=== PATIENT | female | born 1950 | race Caucasian/White ===

== ENCOUNTER 2023-02-18 18:28 | Inpatient (IN) | payer MEDICAID ==
[~2023-02-18] VITALS: Ht 152.4 cm; Wt 57.3 kg
[2023-02-18 19:09] LABS: BASOPHILS # (AUTO) 0.1 K/UL (0.0-0.2); BASOPHILS % (AUTO) 1.5 % (0.0-2.0); EOSINOPHILS # (AUTO) 0.5 K/uL (0.0-0.7); EOSINOPHILS % (AUTO) 11.4 % (0.0-7.0); HEMATOCRIT 29.5 % (31.2-41.9); HEMOGLOBIN 9.6 g/dL (10.9-14.3); LYMPHOCYTES # (AUTO) 0.7 K/uL (0.8-4.8); LYMPHOCYTES % (AUTO) 17.9 % (20.5-51.5); MEAN CORPUSCULAR HEMOGLOBIN 29.9 uug (24.7-32.8); MEAN CORPUSCULAR HGB CONC 33 g/dL (32.3-35.6); MEAN CORPUSCULAR VOLUME 91.5 fL (75.5-95.3); MONOCYTES # (AUTO) 0.4 K/uL (0.1-1.30); MONOCYTES % (AUTO) 10.6 % (0.0-11.0); NEUTROPHILS # (AUTO) 2.4 K/uL (1.8-8.9); NEUTROPHILS % (AUTO) 58.6 % (38.5-71.5); PLATELET COUNT (AUTO) 89 K/uL (179-408); RED BLOOD CELL COUNT(AUTO) 3.22 MIL/uL (3.63-4.92); RED CELL DISTRIBUTION WIDTH 17.3 % (12.3-17.7)
[2023-02-18 19:12] LABS: DIFFERENTIAL COMMENT 1
[2023-02-18] MEDS ORDERED: IV NORMAL SALINE 500 ML BAG IV ONE (19:30)
[2023-02-18] MEDS ORDERED: ASPIRIN 81 MG TAB.CHEW PO ONE (19:30)
[2023-02-18] MEDS ORDERED: NITROGLYCERIN OINT 1 GM PACKET TP ONE ×2 (19:30→19:40)
[2023-02-18 19:36] LABS: ALANINE AMINOTRANSFERASE 19 U/L (14-59); ALKALINE PHOSPHATASE 299 U/L (50-136); ASPARTATE AMINOTRANSFERASE 51 U/L (15-37); BILIRUBIN,DIRECT 0.5 mg/dL (0.0-0.2); BILIRUBIN,TOTAL 0.9 mg/dL (0.2-1.0); CARBON DIOXIDE 27 mmol/L (21-32); CHLORIDE 97 mmol/L (98-107); CREATININE 6.3 mg/dL (0.6-1.3); GLUCOSE 209 mg/dL (74-106); POTASSIUM 4.8 mmol/L (3.5-5.1); SODIUM SERUM 135 mmol/L (136-145); TOTAL PROTEIN, SERUM 7.8 g/dL (6.4-8.2); UREA NITROGEN, BLOOD 63 mg/dL (7-18)
[2023-02-18] MEDS ORDERED: ASPIRIN 81 MG TAB.CHEW ONE (19:40)
[2023-02-18 20:04] LABS: *OCCULT BLOOD STOOL NEGATIVE (NEGATIVE)
[2023-02-18] MEDS ORDERED: ENOXAPARIN SODIUM 60 MG/0.6 ML DISP.SYRIN SQ ONE ×2 (21:42→21:45)
[2023-02-18 22:10] LABS: NT-PRO BNP > 35000 pg/mL (0-125)
[2023-02-18] MEDS ORDERED: HYDROCODONE/APAP 5-325MG TABLET PO PRN (22:30)
[2023-02-18] MEDS ORDERED: ONDANSETRON 4 MG/2 ML VIAL IV PRN (22:30)
[2023-02-18] MEDS ORDERED: REMEDY ESSENTIAL ZINC PASTE 113 GM TP PRN (22:30)
[2023-02-18] MEDS ORDERED: MAGNESIUM HYDROXIDE 30 ML LIQUID UDC PO PRN (22:30)
[2023-02-19] VITALS (7 sets, daily range): BP systolic 148–168; BP diastolic 65–80; TEMP 97.7–98.2; O2SAT 92–100
[2023-02-19] MEDS: ACETAMINOPHEN 325 MG TABLET PO PRN ×2 (00:57→21:16)
[2023-02-19] MEDS: PANTOPRAZOLE SODIUM 40 MG TABLET.DR PO SCH (06:12)
[2023-02-19 06:24] LABS: BASOPHILS # (AUTO) 0.1 K/UL (0.0-0.2); BASOPHILS % (AUTO) 2.1 % (0.0-2.0); EOSINOPHILS # (AUTO) 0.3 K/uL (0.0-0.7); HEMATOCRIT 28.3 % (31.2-41.9); HEMOGLOBIN 9.4 g/dL (10.9-14.3); LYMPHOCYTES # (AUTO) 0.9 K/uL (0.8-4.8); LYMPHOCYTES % (AUTO) 18.6 % (20.5-51.5); MEAN CORPUSCULAR HEMOGLOBIN 30.2 uug (24.7-32.8); MEAN CORPUSCULAR HGB CONC 33 g/dL (32.3-35.6); MEAN CORPUSCULAR VOLUME 90.4 fL (75.5-95.3); MONOCYTES # (AUTO) 0.5 K/uL (0.1-1.30); MONOCYTES % (AUTO) 9.9 % (0.0-11.0); NEUTROPHILS # (AUTO) 3.1 K/uL (1.8-8.9); NEUTROPHILS % (AUTO) 63.4 % (38.5-71.5); PLATELET COUNT (AUTO) 90 K/uL (179-408); RED BLOOD CELL COUNT(AUTO) 3.13 MIL/uL (3.63-4.92); RED CELL DISTRIBUTION WIDTH 17.2 % (12.3-17.7); WHITE BLOOD COUNT (AUTO) 4.9 K/uL (3.8-11.8)
[2023-02-19 06:40] LABS: CALCIUM 7.5 mg/dL (8.5-10.1); CARBON DIOXIDE 28 mmol/L (21-32); CHLORIDE 99 mmol/L (98-107); CREATININE 6.5 mg/dL (0.6-1.3); GLUCOSE 121 mg/dL (74-106); PHOSPHOROUS 4.8 mg/dL (2.5-4.9); POTASSIUM 5.5 mmol/L (3.5-5.1); SODIUM SERUM 136 mmol/L (136-145); UREA NITROGEN, BLOOD 64 mg/dL (7-18)
[2023-02-19 06:43] LABS: DIFFERENTIAL COMMENT 1
[2023-02-19 06:51] LABS: THYROID STIMULATING HORMONE 2.225 mIU/mL (0.358-3.740)
[2023-02-19 07:22] LABS: LYMPHOCYTES % (MANUAL) 0 % (20-40); NEUTROPHILS % (MANUAL) 0 % (42-75)
[2023-02-19] MEDS ORDERED: ASPIRIN 81 MG TAB.CHEW PO SCH ×2 (09:00)
[2023-02-19] MEDS ORDERED: ISOS10TA2 PO (12:51)
[2023-02-19] MEDS ORDERED: GABA300S PO (12:52)
[2023-02-19] MEDS ORDERED: ATOR10TA PO (12:52)
[2023-02-19] MEDS ORDERED: CARV6.252 PO (13:10)
[2023-02-19] MEDS ORDERED: ASPI-618 PO (13:11)
[2023-02-19] MEDS ORDERED: PANT40TA49 PO (13:11)
[2023-02-19] MEDS ORDERED: CALC667T6 PO (13:12)
[2023-02-19] MEDS: CALCIUM ACETATE 667 MG CAP/TAB PO SCH ×2 (14:09→17:36)
[2023-02-19] MEDS: ISOSORBIDE DINITRATE 10 MG TABLET PO SCH (15:18)
[2023-02-19] MEDS: CARVEDILOL 6.25 MG TABLET PO SCH (16:39)
[2023-02-19] MEDS: ATORVASTATIN 10 MG TABLET PO SCH (21:16)
[2023-02-19] MEDS: GABAPENTIN 300 MG CAPSULE PO SCH (21:17)
[2023-02-20] MEDS: PANTOPRAZOLE SODIUM 40 MG TABLET.DR PO SCH (06:17)
[2023-02-20 07:17] LABS: BASOPHILS # (AUTO) 0.1 K/UL (0.0-0.2); BASOPHILS % (AUTO) 1.3 % (0.0-2.0); EOSINOPHILS # (AUTO) 0.4 K/uL (0.0-0.7); EOSINOPHILS % (AUTO) 9.6 % (0.0-7.0); HEMATOCRIT 27.9 % (31.2-41.9); HEMOGLOBIN 9.3 g/dL (10.9-14.3); LYMPHOCYTES # (AUTO) 0.5 K/uL (0.8-4.8); LYMPHOCYTES % (AUTO) 13.7 % (20.5-51.5); MEAN CORPUSCULAR HEMOGLOBIN 30.2 uug (24.7-32.8); MEAN CORPUSCULAR HGB CONC 34 g/dL (32.3-35.6); MEAN CORPUSCULAR VOLUME 90.3 fL (75.5-95.3); MONOCYTES # (AUTO) 0.4 K/uL (0.1-1.30); MONOCYTES % (AUTO) 9.4 % (0.0-11.0); NEUTROPHILS # (AUTO) 2.5 K/uL (1.8-8.9); PLATELET COUNT (AUTO) 88 K/uL (179-408); RED BLOOD CELL COUNT(AUTO) 3.09 MIL/uL (3.63-4.92); RED CELL DISTRIBUTION WIDTH 17.4 % (12.3-17.7); WHITE BLOOD COUNT (AUTO) 3.8 K/uL (3.8-11.8)
[2023-02-20 07:45] LABS: DIFFERENTIAL COMMENT 1
[2023-02-20 08:10] LABS: ALANINE AMINOTRANSFERASE 19 U/L (14-59); ALBUMIN 2.9 g/dL (3.4-5.0); ALKALINE PHOSPHATASE 256 U/L (50-136); ASPARTATE AMINOTRANSFERASE 22 U/L (15-37); BILIRUBIN,TOTAL 0.8 mg/dL (0.2-1.0); CALCIUM 8.1 mg/dL (8.5-10.1); CARBON DIOXIDE 29 mmol/L (21-32); CHLORIDE 97 mmol/L (98-107); CREATININE 4.7 mg/dL (0.6-1.3); GLUCOSE 127 mg/dL (74-106); MAGNESIUM 2.1 mg/dL (1.8-2.4); PHOSPHOROUS 3.9 mg/dL (2.5-4.9); POTASSIUM 4.4 mmol/L (3.5-5.1); SODIUM SERUM 135 mmol/L (136-145); TOTAL PROTEIN, SERUM 7.6 g/dL (6.4-8.2); UREA NITROGEN, BLOOD 43 mg/dL (7-18)
[2023-02-20 09:00] VITALS: BP 158/65; TEMP 98.2; O2SAT 97
[2023-02-20] MEDS ORDERED: PANTOPRAZOLE SODIUM 40 MG TABLET.DR PO SCH (09:00)
[2023-02-20] MEDS: CARVEDILOL 6.25 MG TABLET PO SCH ×2 (09:18→17:31)
[2023-02-20] MEDS: ASPIRIN EC 81 MG TABLET.DR PO SCH (09:18)
[2023-02-20] MEDS: CALCIUM ACETATE 667 MG CAP/TAB PO SCH ×3 (09:18→17:31)
[2023-02-20] MEDS: ISOSORBIDE DINITRATE 10 MG TABLET PO SCH (09:19)
[2023-02-20 11:06] LABS: HEPATITIS B SURFACE AB, QUAL Non Reactive (.); HEPATITIS B SURFACE AG Negative (Negative)
[2023-02-20 11:58] VITALS: BP 158/71; TEMP 98; O2SAT 99
[2023-02-20 16:10] VITALS: BP 158/66; TEMP 97.7; O2SAT 99
[2023-02-20 19:50] VITALS: BP 168/79; TEMP 98; O2SAT 99
[2023-02-20] MEDS ORDERED: hydrALAZINE HCL 20 MG/1 ML VIAL IV PRN (20:15)
[2023-02-20] MEDS: ATORVASTATIN 10 MG TABLET PO SCH (20:28)
[2023-02-20] MEDS: GABAPENTIN 300 MG CAPSULE PO SCH (20:28)
[2023-02-20 21:29] VITALS: BP 146/64; TEMP 98; O2SAT 99
[2023-02-21 05:03] VITALS: BP 151/68; TEMP 98.5; O2SAT 99
[2023-02-21] MEDS: ACETAMINOPHEN 325 MG TABLET PO PRN ×2 (05:34→12:44)
[2023-02-21] MEDS: PANTOPRAZOLE SODIUM 40 MG TABLET.DR PO SCH (06:07)
[2023-02-21 06:36] LABS: BASOPHILS # (AUTO) 0.1 K/UL (0.0-0.2); BASOPHILS % (AUTO) 1.3 % (0.0-2.0); EOSINOPHILS # (AUTO) 0.4 K/uL (0.0-0.7); EOSINOPHILS % (AUTO) 9.6 % (0.0-7.0); HEMATOCRIT 25.8 % (31.2-41.9); HEMOGLOBIN 8.7 g/dL (10.9-14.3); LYMPHOCYTES # (AUTO) 0.6 K/uL (0.8-4.8); LYMPHOCYTES % (AUTO) 13.6 % (20.5-51.5); MEAN CORPUSCULAR HEMOGLOBIN 30.3 uug (24.7-32.8); MEAN CORPUSCULAR HGB CONC 34 g/dL (32.3-35.6); MEAN CORPUSCULAR VOLUME 89.9 fL (75.5-95.3); MONOCYTES # (AUTO) 0.5 K/uL (0.1-1.30); MONOCYTES % (AUTO) 11.3 % (0.0-11.0); NEUTROPHILS # (AUTO) 2.9 K/uL (1.8-8.9); NEUTROPHILS % (AUTO) 64.2 % (38.5-71.5); PLATELET COUNT (AUTO) 90 K/uL (179-408); RED BLOOD CELL COUNT(AUTO) 2.87 MIL/uL (3.63-4.92); RED CELL DISTRIBUTION WIDTH 17.5 % (12.3-17.7); WHITE BLOOD COUNT (AUTO) 4.5 K/uL (3.8-11.8)
[2023-02-21 06:50] LABS: CALCIUM 7.9 mg/dL (8.5-10.1); CARBON DIOXIDE 27 mmol/L (21-32); CHLORIDE 96 mmol/L (98-107); CHOLESTEROL 112 mg/dL (<200); CREATININE 5.8 mg/dL (0.6-1.3); GLUCOSE 152 mg/dL (74-106); HDL CHOLESTEROL 39 mg/dL (40-60); MAGNESIUM 1.9 mg/dL (1.8-2.4); PHOSPHOROUS 3.8 mg/dL (2.5-4.9); POTASSIUM 5.3 mmol/L (3.5-5.1); SODIUM SERUM 131 mmol/L (136-145); TRIGLYCERIDES 85 MG/DL (30-150); UREA NITROGEN, BLOOD 54 mg/dL (7-18)
[2023-02-21 06:56] LABS: DIFFERENTIAL COMMENT 1
[2023-02-21 08:25] VITALS: BP 152/62; TEMP 98.3; O2SAT 98
[2023-02-21] MEDS: ASPIRIN EC 81 MG TABLET.DR PO SCH (08:48)
[2023-02-21] MEDS: ISOSORBIDE DINITRATE 10 MG TABLET PO SCH (08:49)
[2023-02-21] MEDS: CALCIUM ACETATE 667 MG CAP/TAB PO SCH ×3 (08:49→18:03)
[2023-02-21] MEDS: CARVEDILOL 12.5 MG TABLET PO SCH ×2 (08:50→18:03)
[2023-02-21] MEDS ORDERED: AMLODIPINE 5 MG TABLET PO SCH (09:00)
[2023-02-21 12:53] VITALS: BP 132/90; TEMP 97.9; O2SAT 98
[2023-02-21 16:00] VITALS: BP 138/64; TEMP 97.8; O2SAT 100
[2023-02-21] MEDS ORDERED: hydrALAZINE HCL 25 MG TABLET PO ONE (19:02)
[2023-02-21] MEDS ORDERED: AMLO-212 PO (19:05)
[2023-02-21] MEDS ORDERED: CARV12.52 PO (19:05)
[2023-02-21 19:25] VITALS: BP 115/64
== END 2023-02-21 20:11 | disposition home or self-care (01) | DRG 194 ==
LOC: ER 18:36 → TELE3 22:32 → MEDSURG3 02-20 10:05
PROVIDERS: ADMIT Internal Medicine; ATTEND Internal Medicine
PROC: 5A1D70Z Performance of Urinary Filtration, Intermittent, Less than 6 Hours Per Day (ICD-10-PCS; principal; 2023-02-19)
DX: I13.2 Hypertensive heart and chronic kidney disease with heart failure and with stage 5 chronic kidney disease, or end stage renal disease (principal); I27.22 Pulmonary hypertension due to left heart disease; N18.6 End stage renal disease; E44.1 Mild protein-calorie malnutrition; E87.1 Hypo-osmolality and hyponatremia; I50.43 Acute on chronic combined systolic (congestive) and diastolic (congestive) heart failure; E11.22 Type 2 diabetes mellitus with diabetic chronic kidney disease; D64.9 Anemia, unspecified; I95.1 Orthostatic hypotension; E78.5 Hyperlipidemia, unspecified; R77.8 Other specified abnormalities of plasma proteins; Z99.2 Dependence on renal dialysis; E87.5 Hyperkalemia; I25.2 Old myocardial infarction; K21.9 Gastro-esophageal reflux disease without esophagitis; M19.90 Unspecified osteoarthritis, unspecified site; M89.8X9 Other specified disorders of bone, unspecified site; Z68.24 Body mass index [BMI] 24.0-24.9, adult; I25.10 Atherosclerotic heart disease of native coronary artery without angina pectoris; R53.1 Weakness
CPT/HCPCS: 36415; 70030-TC; 71045; 83735; 84100; 84443; 84484; 85025; 86706; 87340; 90937; 93005; 93307; A4663; G0378; J0360; J1650; J7040